=== PATIENT | female | born 1940 | race Caucasian/White ===

== ENCOUNTER → 2019-11-01 | Outpatient (CLI) | payer MEDICARE, OTHER ==
[~2019-11-01] MED LIST: [UNRECOGNIZED DRUG - REMARK]
[2019-11-01 14:19] LABS: ALANINE AMINOTRANSFERASE 16 U/L (12-78); ALBUMIN 3.5 g/dL (3.4-5.0); ANION GAP 5 mmol/L (5-15); CALCIUM 8.5 mg/dL (8.5-10.1); CHLORIDE 105 mmol/L (98-107); CREATININE 1.14 mg/dL (0.55-1.02)
[2019-11-01 14:21] LABS: ALKALINE PHOSPHATASE 98 U/L (45-117); BILIRUBIN,TOTAL 0.4 mg/dL (0.2-1.0); TOTAL PROTEIN 7.2 g/dL (6.4-8.2)
== END | disposition home or self-care (01) ==
LOC: STAR 12:55
PROVIDERS: ATTEND Internal Medicine
DX: Z01.818 Encounter for other preprocedural examination (principal); R19.7 Diarrhea, unspecified; R13.10 Dysphagia, unspecified
CPT/HCPCS: 36415; 80053; 93005

== ENCOUNTER 2019-11-05 08:16 | Day surgery (SDC) | payer MEDICARE, OTHER ==
[~2019-11-05] VITALS: Ht 157.5 cm; Wt 81.0 kg
[2019-11-05 09:10] VITALS: BP 126/78
[2019-11-05] MEDS ORDERED: MIDAZOLAM 1 MG/ML, 2ML ONE (09:13)
[2019-11-05] MEDS ORDERED: FENTANYL PF 100 MCG/2ML ONE (09:13)
[2019-11-05] MEDS ORDERED: LACTATED RINGERS 1,000 ML IV SCH (09:14)
[2019-11-05] MEDS ORDERED: ETOMIDATE 40 MG/20 ML ONE (09:23)
[2019-11-05] MEDS ORDERED: SUGAMMADEX 200 MG/2 ML IVPush ONE (09:23)
[2019-11-05] MEDS ORDERED: DEXAMETHASONE 4 MG/ML, 1ML ONE (09:23)
[2019-11-05] MEDS ORDERED: PROPOFOL 10 MG/ML, 20ML ONE (09:23)
[2019-11-05] MEDS ORDERED: ROCURONIUM 10 MG/ML,10ML ONE (09:23)
[2019-11-05] MEDS ORDERED: ONDANSETRON 2MG/ML, 2ML ONE (09:23)
[2019-11-05] MEDS ORDERED: PHENYLEPHRINE 10 MG/ML ONE (09:23)
[2019-11-05] MEDS ORDERED: ALBUTEROL/IPRATROPIUM 2.5MG/0.5MG, 3 ML ONE (10:26)
[2019-11-05] MEDS ORDERED: ALBUTEROL/IPRATROPIUM 2.5MG/0.5MG, 3 ML NEB ONE (11:00)
== END 2019-11-05 13:20 | disposition home or self-care (01) ==
LOC: OUT 08:16
PROVIDERS: ATTEND Internal Medicine
DX: K62.5 Hemorrhage of anus and rectum (principal); K52.9 Noninfective gastroenteritis and colitis, unspecified; K31.9 Disease of stomach and duodenum, unspecified; K64.1 Second degree hemorrhoids; I11.0 Hypertensive heart disease with heart failure; I50.9 Heart failure, unspecified; E11.9 Type 2 diabetes mellitus without complications; F17.210 Nicotine dependence, cigarettes, uncomplicated; J44.9 Chronic obstructive pulmonary disease, unspecified; Z79.899 Other long term (current) drug therapy; Z88.0 Allergy status to penicillin; Z72.89 Other problems related to lifestyle; Z86.718 Personal history of other venous thrombosis and embolism; Z79.84 Long term (current) use of oral hypoglycemic drugs
CPT/HCPCS: 43239; 43248; 45380; 45398; 82962; 88305; 94640; J1100; J2250; J2370; J2405; J2704; J3010; J7120